=== PATIENT | male | born 1985 | race African-American/Black ===

== ENCOUNTER 2018-09-22 12:36 | Emergency (ER) | payer OTHER ==
--- NOTE | 2018-09-22 14:31 | ED ---
Abdominal Pain/Male - HPI Summary HPI Summary: A 33 y/o M inmate presents to ED with c/o R-sided back pain onset last night. The pain radiates to his RUQ. Associated sx: bloody stool last night and 1x a month ago; He denies vomiting, fever, chills. He denies abd surgeries. Aggravating factors: movement. He has had recent knee and wrist surgery. NKDA. PMHx: HTN, takes daily medications. - History of Current Complaint Chief Complaint: EDAbdPain Stated Complaint: ABD AND RIGHT SIDE PAIN PER PT Time Seen by Provider: 09/22/18 14:25 Hx Obtained From: Patient, Medical Records Onset/Duration: Lasting Days - onset last night, Still Present Timing: Constant Severity Initially: Moderate Severity Currently: Severe Pain Intensity: 9 Pain Scale Used: 0-10 Numeric Location: Other - R-side back and wrapping to RUQ Aggravating Factor(s): Movement Associated Signs And Symptoms: Positive: Blood in Stool, Other - neg: chills. Negative: Fever, Vomiting - Allergies/Home Medications Allergies/Adverse Reactions: Allergies Allergy/AdvReac Type Severity Reaction Status Date / Time No Known Allergies Allergy Verified 09/22/18 12:52 Home Medications: Home Medications amLODIPine TAB* [Norvasc 5 mg TAB*] 5 mg PO DAILY 09/22/18 [History Confirmed ] PMH/Surg Hx/FS Hx/Imm Hx Previously Healthy: No Cardiovascular History: Reports: Hx Hypertension Sensory History: Denies: Hx Legally Blind, Hx Deafness Opthamlomology History: Denies: Hx Legally Blind EENT History: Denies: Hx Deafness Infectious Disease History: No Infectious Disease History: Denies: Traveled Outside the [place] in Last 30 Days Review of Systems Negative: Fever, Chills Positive: Abdominal Pain - RUQ, Other - pos: bloody stool. Negative: Vomiting Musculoskeletal: Other - pos: back pain All Other Systems Reviewed And Are Negative: Yes Physical Exam - Summary Physical Exam Summary: GENERAL: Patient is a well-developed and nourished female who is lying comfortable in the stretcher. Patient is not in any acute respiratory distress. HEAD AND FACE: Normocephalic EYES: PERRLA, EOMI x 2. EARS: Hearing grossly intact. MOUTH: Oropharynx within normal limits. NECK: Supple, trachea is midline, no adenopathy, no JVD, no carotid bruit. CHEST: Symmetric, no tenderness at palpation LUNGS: Clear to auscultation bilaterally. No wheezing or crackles. CVS: Regular rate and rhythm, S1 and S2 present, no murmurs or gallops appreciated. ABDOMEN: Soft, tender to palpation of RUQ. Morin's sign positive. Bowel sounds are normal. No abdominal abnormal pulsations. EXTREMITIES: Full ROM in all major joints, no edema, no cyanosis or clubbing. NEURO: Alert and oriented x 3. No acute neurological deficits. Speech is normal and follows commands. SKIN: Dry and warm Triage Information Reviewed: Yes Vital Signs On Initial Exam: Initial Vitals Temp Pulse Resp BP Pulse Ox 97.3 F 69 16 143/100 97 09/22/18 12:47 09/22/18 12:47 09/22/18 12:47 09/22/18 12:47 09/22/18 12:47 Vital Signs Reviewed: Yes Diagnostics - Vital Signs Vital Signs Temp Pulse Resp BP Pulse Ox 09/22/18 12:47 97.3 F 69 16 143/100 97 - Laboratory Result Diagrams: 09/22/18 14:33 09/22/18 14:33 Lab Statement: Any lab studies that have been ordered have been reviewed, and results considered in the medical decision making process. - CT ABD/PEL CT CT Interpretation Completed By: Radiologist Summary of CT Findings: IMPRESSION: 1. NO EVIDENCE FOR ACUTE INTRA-ABDOMINAL ABNORMALITY. 2. MILD TO MODERATE OSTEOARTHRITIC CHANGE IN THE HIPS. ED provider has reviewed this report. - Ultrasound No standard instances Ultrasound Interpretation Completed By: Radiologist Summary of Ultrasound Findings: ABD U/S IMPRESSION: No evidence of cholelithiasis or biliary duct dilatation is noted. ED provider has reviewed this report. Abdominal Pain Male Course/Dx - Course Assessment/Plan: Pt is a 33 y/o M inmate with HTN presenting with R-sided back pain radiating to RUQ onset last night. Associated sx include episode of bloody stool. No vomiting. No fever. He denies any abd surgeries. Lab workup and UA are unremarkable. ABD US and ABD/PEL CT are unremarkable for acute findings. The patient will be discharged. I discussed results with patient and he reports feeling better. He is hemodynamically stable and safe for discharge. Strict return precautions given and he will otherwise follow up with his PCP. - Diagnoses Provider Diagnoses: Abdominal pain Discharge - Sign-Out/Discharge Documenting (check all that apply): Patient Departure - D/C Patient Received Moderate/Deep Sedation with Procedure: No - Discharge Plan Condition: Stable Disposition: HOME Patient Education Materials: Acute Abdominal Pain (ED) Referrals: [facility] [Outside] Additional Instructions: Follow up with your primary care physician in 1-3 days. RETURN TO THE EMERGENCY DEPARTMENT FOR CHANGING OR WORSENING SYMPTOMS. - Billing Disposition and Condition Condition: STABLE Disposition: Home - Attestation Statements Document Initiated by Sabino: Yes Documenting Scribe: Jennifer Torres Provider For Whom Sabino is Documenting (Include Credential): Dr. Nikita Esteban MD Scribe Attestation: Jennifer Cuevas, scrsteveed for Dr. Nikita Esteban MD on 09/22/18 at 1845. Scribe Documentation Reviewed: Yes Provider Attestation: The documentation as recorded by the Jennifer grijalva accurately reflects the service I personally performed and the decisions made by me, Dr. Nikita Esteban MD Status of Scribe Document: Viewed
[2018-09-22] MEDS ORDERED: NS 0.9% 1000 ML** 1,000 ML IV ONE (14:35)
[2018-09-22] MEDS ORDERED: Ketorolac INJ* 30 MG/ML 1 ML VIAL IV PUSH ONE (14:36)
[2018-09-22] MEDS ORDERED: Ondansetron INJ* 2 MG/ML VIAL IV ONE (14:36)
[2018-09-22 14:39] LABS: ABS Basophils 0 10^3/ul (0-0.2); ABS Eosinophils 0.2 10^3/ul (0-0.6); ABS Lymphocytes 2.4 10^3/ul (1.0-4.8); ABS Monocytes 0.6 10^3/ul (0-0.8); ABS Neutrophils 2.9 10^3/ul (1.5-7.7); ABS Nucleated RBC 0 10^3/ul; Eosinophil % 2.9 %; Hematocrit 44 % (42-52); Hemoglobin 14.6 g/dl (14.0-18.0); Mean Corpuscular HGB Conc 33 g/dl (31-36); Mean Corpuscular Hemoglobin 30 pg (27-31); Mean Corpuscular Volume 92 fL (80-94); Mean Platelet Volume 7.5 fL (7.4-10.4); Nucleated Red Blood Cells % 0.3; Platelet Count 266 10^3/ul (150-450); Red Blood Count 4.82 10^6/ul (4.00-5.40); Red Cell Distribution Width 15 % (10.5-15); White Blood Count 6.2 10^3/ul (3.5-10.8)
[2018-09-22 15:02] LABS: Albumin 4.5 g/dL (3.2-5.2); Albumin/Globulin Ratio 1.5 (1-3); BUN/Creatinine Ratio 11.8 (8-20); C Reactive Protein 1.33 mg/L (<8.01); Calcium 9.5 mg/dL (8.6-10.3); EGFR African American 103.1 (>60); EGFR Non-African American 85.2 (>60); Potassium 4.3 mmol/L (3.5-5.0); Total Bilirubin 0.4 mg/dL (0.2-1.0); Total Protein 7.5 g/dL (6.4-8.9)
[2018-09-22] MEDS ORDERED: Iohexol 300* (CONTRAST) 10 ML SDV IV ONE (15:40)
[2018-09-22 15:50] LABS: Urine Appearance Clear; Urine Bilirubin Negative (Negative); Urine Blood Negative (Negative); Urine Color Yellow; Urine Glucose Negative (Negative); Urine Ketones Negative (Negative); Urine Nitrite Negative (Negative); Urine Protein Negative (Negative); Urine Specific Gravity 1.024 (1.010-1.030); Urine Urobilinogen Negative (Negative)
[2018-09-22 17:05] VITALS: BP 153/108
== END 2018-09-22 16:59 | disposition home or self-care (01) ==
LOC: ED 12:36
DX: R10.11 Right upper quadrant pain (principal); K92.1 Melena; M16.0 Bilateral primary osteoarthritis of hip; I10 Essential (primary) hypertension
CPT/HCPCS: 36415; 74177; 76705; 80053; 81003; 82150; 83605; 83690; 85025; 86140; 96361; 96374; 96375; 99283; J1885; J2405; Q9967